=== PATIENT | male | born 1955 | race Caucasian/White ===

== ENCOUNTER 2018-11-07 06:55 | Observation (INO) | payer BC ==
[2018-11-07] MEDS: Nitroglycerin 0.4 MG Tab.SL SL PRN ×3 (07:00→07:50)
[2018-11-07] MEDS ORDERED: Aspirin 81 MG Tab.Chew PO ONE (07:29)
[2018-11-07] MEDS ORDERED: Sodium Chloride 0.9% 1,000 ML IV SCH (07:30)
[2018-11-07] MEDS ORDERED: GI Cocktail Oral Solution 30 ML PO ONE (07:49)
--- NOTE | 2018-11-07 08:12 | EDM.PDOC ---
ED HPI GENERAL MEDICAL PROBLEM - General Chief Complaint: Cardiovascular Problem Stated Complaint: NOT FEEL WELL Time Seen by Provider: 11/07/18 07:25 Source of Information: Reports: Patient History Limitations: Reports: No Limitations - History of Present Illness INITIAL COMMENTS - FREE TEXT/NARRATIVE: This is a 63yo M here for chest pressure since last night 1am. He states he woke up with the pressure and it has not gone away. He does take a baby aspirin daily. He had a high BP when he woke up. He denies any other issues or concerns. He does take Tums frequently and per he takes them usually 1 hour after meals. Patient denies recent fever or illness. The pressure of the epigastric area and chest is about 6/10 with some improvement when nitro was given. It is constant and unremitting. Onset: Sudden Duration: Hour(s):, Constant Sternum Pain Score (Numeric/FACES): 6 - Related Data Allergies Allergy/AdvReac Type Severity Reaction Status Date / Time No Known Allergies Allergy Verified 11/07/18 08:02 Home Meds: Home Meds Aspirin 81 mg PO DAILY 09/17/16 [History] Fish Oil/[place]grath-3 Fatty Acids [Fish Oil] 1 each PO BID 09/17/16 [History] Multivitamin [Multivitamins] 1 each PO DAILY 09/17/16 [History] Losartan [Cozaar] 25 mg PO DAILY 11/07/18 [History] Past Medical History - Past Health History Medical/Surgical History: Denies Medical/Surgical History Social & Family History - Family History Family Medical History: Noncontributory - Caffeine Use Caffeine Use: Reports: Coffee Caffeine Use Comment: 3 cups a day ED ROS GENERAL - Review of Systems Review Of Systems: ROS reveals no pertinent complaints other than HPI. ED EXAM, GENERAL - Physical Exam Exam: See Below Course - Vital Signs Last Recorded V/S: Last Vital Signs Temp 37.0 C 11/07/18 06:55 Pulse 64 11/07/18 14:28 Resp 20 11/07/18 08:07 BP 138/79 11/07/18 14:28 Pulse Ox 95 11/07/18 13:00 - Orders/Labs/Meds Orders: Active Orders 24 hr Category Date Time Status Cardiac Monitoring [RC] .As Directed Care 11/07/18 07:28 Active EKG Documentation Completion [RC] ASDIRECTED Care 11/07/18 07:26 Active Labs: Laboratory Tests 11/07/18 11/07/18 11/07/18 Range/Units 07:00 07:00 07:00 WBC 4.2 D (4.0-11.0) K/uL RBC 4.75 (4.50-6.50) M/uL Hgb 14.9 (13.0-18.0) g/dL Hct 43.1 (40.0-54.0) % MCV 91 (76-96) fL MCH 31.4 (27.0-32.0) pg MCHC 34.6 (31.0-35.0) g/dL RDW 12.9 (11.0-16.0) % Plt Count 210 (150-400) K/uL MPV 10.6 H (6.0-10.0) fL Neut % (Auto) 47.0 (45.0-70.0) % Lymph % (Auto) 36.0 (20.0-40.0) % [place] % (Auto) 11.1 H (3.0-10.0) % Eos % (Auto) 5.0 (1.0-5.0) % Baso % (Auto) 0.9 H (0.0-0.5) % Neut # (Auto) 1.98 L (2.00-7.50) K/uL Lymph # (Auto) 1.52 (1.50-4.00) K/uL [place] # (Auto) 0.47 (0.20-0.80) K/uL Eos # (Auto) 0.21 (0.04-0.40) K/uL Baso # (Auto) 0.04 (0.02-0.10) K/uL Sodium 142 (136-145) mmol/L Potassium 4.1 (3.5-5.1) mmol/L Chloride 105 (98-107) mmol/L Carbon Dioxide 25.9 (21.0-32.0) mmol/L Anion Gap 15.2 H (5.0-15.0) mmol/L BUN 15 (8-26) mg/dL Creatinine 1.19 (0.70-1.30) mg/dL Est Cr Clr Drug Dosing TNP Estimated GFR (MDRD) > 60 (>60) MLS/MIN BUN/Creatinine Ratio 12.6 (6-25) Glucose 128 H (74-100) mg/dL Calcium 9.8 (8.5-10.1) mg/dL Troponin I < 0.017 (0.000-0.060) ng/mL B-Natriuretic Peptide 16 (0-125) pg/mL Meds: Medications Discontinued Medications Generic Name Dose Route Start Last Admin Trade Name Freq PRN Reason Stop Dose Admin Al Hydroxide/Mg Hydroxide 30 ml 11/07/18 07:49 11/07/18 07:53 Gi Cocktail PO 11/07/18 07:50 30 ml ONETIME ONE Administration Aspirin 324 mg 11/07/18 07:29 11/07/18 07:00 Aspirin PO 11/07/18 07:30 324 mg ONETIME ONE Administration Sodium Chloride 1,000 mls @ 250 mls/hr 11/07/18 07:30 Normal Saline IV ASDIRECTED [facility] Ketorolac Tromethamine Confirm 11/07/18 08:49 11/07/18 08:58 Toradol Administered 11/07/18 08:50 Not Given Dose 30 mg .ROUTE .STK-MED ONE Ketorolac Tromethamine 30 mg 11/07/18 08:55 11/07/18 08:59 Toradol IVPUSH 11/07/18 08:56 30 mg ONETIME ONE Administration Nitroglycerin 0.4 mg 11/07/18 07:28 11/07/18 07:50 Nitrostat SL 0.4 mg Q5M PRN Administration Chest Pain Pantoprazole Sodium 40 mg 11/07/18 14:29 11/07/18 14:46 Protonix Iv IVPUSH 11/07/18 14:30 40 mg ONETIME ONE Administration Pantoprazole Sodium Confirm 11/07/18 14:42 11/07/18 14:55 Protonix Iv Administered 11/07/18 14:43 Not Given Dose 40 mg .ROUTE .STK-MED ONE Departure - Departure Time of Disposition: 08:00 Disposition: Refer to Observation Condition: Good Clinical Impression: Chest tightness or pressure, Epigastric heaviness - Problem List & Annotations (1) Chest tightness or pressure SNOMED Code(s): 76294435 Code(s): R07.89 - OTHER CHEST PAIN Status: Acute Priority: High (2) Epigastric heaviness SNOMED Code(s): 9084872 Code(s): R19.8 - OTH SYMPTOMS AND SIGNS INVOLVING THE DGSTV SYS AND ABDOMEN Status: Acute Priority: High - Problem List Review Problem List Initiated/Reviewed/Updated: Yes - My Orders Last 24 Hours: My Active Orders 11/07/18 07:26 EKG Documentation Completion [RC] ASDIRECTED 11/07/18 07:28 Cardiac Monitoring [RC] .As Directed - Assessment/Plan Last 24 Hours: My Active Orders 11/07/18 07:26 EKG Documentation Completion [RC] ASDIRECTED 11/07/18 07:28 Cardiac Monitoring [RC] .As Directed Plan: Patient placed in observation under telemetry for chest pressure and r/o ACS. Serial troponins ordered.
[2018-11-07] MEDS ORDERED: Ketorolac 30 MG/ML SDV ONE (08:49)
[2018-11-07] MEDS ORDERED: Ketorolac 30 MG/ML SDV IVPUSH ONE (08:55)
--- NOTE | 2018-11-07 09:39 | CR ---
DATE OF SERVICE: 11/07/18 CLINICAL DATA: Chest pain. FRONTAL VIEW OF THE CHEST: No priors. The heart size is normal. The lungs are clear. No pneumothorax. No pleural effusions. No evidence of acute intrathoracic disease. [id number] MTDD
[2018-11-07 14:28] VITALS: BP 138/79
[2018-11-07] MEDS ORDERED: Pantoprazole 40 MG Vial IVPUSH ONE (14:29)
[2018-11-07] MEDS ORDERED: Pantoprazole 40 MG Vial ONE (14:42)
--- NOTE | 2018-11-07 15:08 | CT ---
DATE OF SERVICE: 11/07/2018 CLINICAL DATA: CHEST PAIN No unenhanced chest CT: Multislice acquisition through the chest without IV contrast was performed. No priors. There are a couple of linear densities left lung base consistent with linear atelectasis or fibrosis. The lungs are otherwise clear. No areas of consolidation. No pneumothorax. No pleural effusions. The heart size is normal. There is a coronary artery calcification. No significant pericardial effusion. There are atherosclerotic changes of the thoracic aorta. No aortic aneurysm. No hilar or mediastinal adenopathy. There is a small hiatal hernia. There is gas within the thoracic esophagus most likely related to GE reflux. There is mild degenerative disc disease at multiple levels in the thoracic spine. Otherwise negative. MTDD
--- NOTE | 2018-11-07 15:14 | CT ---
DATE OF SERVICE: 11/07/2018 CLINICAL DATA: Epigastric pain Unenhanced abdomen CT: Multislice acquisition through the abdomen without IV or oral contrast was performed. No priors. The unenhanced liver appears normal. No focal hepatic lesions. The gallbladder appears normal. No calcified gallstones. There is a small hiatal hernia. The spleen appears normal. The pancreas appears normal. The right and left adrenals appear normal. The right and left kidneys appear normal. No nephrocalcinosis or nephrolithiasis. No hydronephrosis or hydroureter. The appendix is not dilated. No evidence of appendicitis. No free air. No free fluid. No dilated loops of bowel. No adenopathy. No aortic aneurysm. MTDD
--- NOTE | 2018-11-07 17:36 | PCM.DCSUM1 ---
Discharge Summary - Discharge Data Discharge Date: 11/07/18 Discharge Disposition: Home, Self-Care 01 Condition: Good - Discharge Diagnosis/Problem(s) (1) Chest tightness or pressure SNOMED Code(s): 42545716 ICD Code: R07.89 - OTHER CHEST PAIN Status: Acute Priority: High (2) Epigastric heaviness SNOMED Code(s): 2266804 ICD Code: R19.8 - OTH SYMPTOMS AND SIGNS INVOLVING THE DGSTV SYS AND ABDOMEN Status: Acute Priority: High - Patient Instructions Diet: Usual Diet as Tolerated Activity: As Tolerated - Discharge Plan Home Medications: Home Meds Aspirin 81 mg PO DAILY 09/17/16 [History] Fish Oil/[place]-3 Fatty Acids [Fish Oil] 1 each PO BID 09/17/16 [History] Multivitamin [Multivitamins] 1 each PO DAILY 09/17/16 [History] Losartan [Cozaar] 25 mg PO DAILY 11/07/18 [History] Patient Handouts: Omeprazole; Sodium Bicarbonate oral capsule, Ketorolac injection, Food Choices for Gastroesophageal Reflux Disease, Adult, Pantoprazole injection, Chest Wall Pain, [id number], Nonspecific Chest Pain, [id number], Gastroesophageal Reflux Disease, Adult, [id number] Forms: ED Department Discharge Referrals: PCP,None [Primary Care Provider] - - Discharge Summary/Plan Comment DC Time >30 min.: Yes Discharge Summary/Plan Comment: Patient improved slightly with two other doses of nitro. Epigastric and chest pain persisted so CT chest and abdomen done showing a small hiatal hernia and likely GERD. Patient counseled on stress test due to coronary calcifications on CT and symptoms. Discussed trial of omeprazole treatment 40mg daily for 2-3 months as directed. Discussed close monitoring and f/u of symptoms in ER or clinic. Patient to be setup for EGD due to CT findings and symptoms. F/u as directed and as needed. - Patient Data Vitals - Most Recent: Last Vital Signs Temp 37.0 C 11/07/18 06:55 Pulse 64 11/07/18 14:28 Resp 20 11/07/18 08:07 BP 138/79 11/07/18 14:28 Pulse Ox 95 11/07/18 13:00 Weight - Most Recent: 99.79 kg Lab Results - Last 24 hrs: Laboratory Results - last 24 hr 11/07/18 11/07/18 11/07/18 Range/Units 07:00 07:00 07:00 WBC 4.2 D (4.0-11.0) K/uL RBC 4.75 (4.50-6.50) M/uL Hgb 14.9 (13.0-18.0) g/dL Hct 43.1 (40.0-54.0) % MCV 91 (76-96) fL MCH 31.4 (27.0-32.0) pg MCHC 34.6 (31.0-35.0) g/dL RDW 12.9 (11.0-16.0) % Plt Count 210 (150-400) K/uL MPV 10.6 H (6.0-10.0) fL Neut % (Auto) 47.0 (45.0-70.0) % Lymph % (Auto) 36.0 (20.0-40.0) % [place] % (Auto) 11.1 H (3.0-10.0) % Eos % (Auto) 5.0 (1.0-5.0) % Baso % (Auto) 0.9 H (0.0-0.5) % Neut # (Auto) 1.98 L (2.00-7.50) K/uL Lymph # (Auto) 1.52 (1.50-4.00) K/uL [place] # (Auto) 0.47 (0.20-0.80) K/uL Eos # (Auto) 0.21 (0.04-0.40) K/uL Baso # (Auto) 0.04 (0.02-0.10) K/uL Sodium 142 (136-145) mmol/L Potassium 4.1 (3.5-5.1) mmol/L Chloride 105 (98-107) mmol/L Carbon Dioxide 25.9 (21.0-32.0) mmol/L Anion Gap 15.2 H (5.0-15.0) mmol/L BUN 15 (8-26) mg/dL Creatinine 1.19 (0.70-1.30) mg/dL Est Cr Clr Drug Dosing TNP Estimated GFR (MDRD) > 60 (>60) MLS/MIN BUN/Creatinine Ratio 12.6 (6-25) Glucose 128 H (74-100) mg/dL Calcium 9.8 (8.5-10.1) mg/dL Total Bilirubin (0.0-1.0) mg/dL AST (15-37) U/L ALT (12-78) U/L Troponin I < 0.017 (0.000-0.060) ng/mL B-Natriuretic Peptide 16 (0-125) pg/mL Lipase (73-393) U/L 11/07/18 11/07/18 11/07/18 Range/Units 10:00 13:00 13:00 WBC (4.0-11.0) K/uL RBC (4.50-6.50) M/uL Hgb (13.0-18.0) g/dL Hct (40.0-54.0) % MCV (76-96) fL MCH (27.0-32.0) pg MCHC (31.0-35.0) g/dL RDW (11.0-16.0) % Plt Count (150-400) K/uL MPV (6.0-10.0) fL Neut % (Auto) (45.0-70.0) % Lymph % (Auto) (20.0-40.0) % [place] % (Auto) (3.0-10.0) % Eos % (Auto) (1.0-5.0) % Baso % (Auto) (0.0-0.5) % Neut # (Auto) (2.00-7.50) K/uL Lymph # (Auto) (1.50-4.00) K/uL [place] # (Auto) (0.20-0.80) K/uL Eos # (Auto) (0.04-0.40) K/uL Baso # (Auto) (0.02-0.10) K/uL Sodium (136-145) mmol/L Potassium (3.5-5.1) mmol/L Chloride (98-107) mmol/L Carbon Dioxide (21.0-32.0) mmol/L Anion Gap (5.0-15.0) mmol/L BUN (8-26) mg/dL Creatinine (0.70-1.30) mg/dL Est Cr Clr Drug Dosing Estimated GFR (MDRD) (>60) MLS/MIN BUN/Creatinine Ratio (6-25) Glucose (74-100) mg/dL Calcium (8.5-10.1) mg/dL Total Bilirubin 0.7 (0.0-1.0) mg/dL AST 27 (15-37) U/L ALT 35 (12-78) U/L Troponin I < 0.017 < 0.017 (0.000-0.060) ng/mL B-Natriuretic Peptide (0-125) pg/mL Lipase 179 (73-393) U/L Med Orders - Current: Current Medications Discontinued Medications Al Hydroxide/Mg Hydroxide (Gi Cocktail) 30 ml PO ONETIME ONE Stop: 11/07/18 07:50 Last Admin: 11/07/18 07:53 Dose: 30 ml Aspirin (Aspirin) 324 mg PO ONETIME ONE Stop: 11/07/18 07:30 Last Admin: 11/07/18 07:00 Dose: 324 mg Sodium Chloride (Normal Saline) 1,000 mls @ 250 mls/hr IV ASDIRECTED [facility] Ketorolac Tromethamine (Toradol) Confirm Administered Dose 30 mg .ROUTE .STK- MED ONE Stop: 11/07/18 08:50 Last Admin: 11/07/18 08:58 Dose: Not Given Ketorolac Tromethamine (Toradol) 30 mg IVPUSH ONETIME ONE Stop: 11/07/18 08:56 Last Admin: 11/07/18 08:59 Dose: 30 mg Nitroglycerin (Nitrostat) 0.4 mg SL Q5M PRN PRN Reason: Chest Pain Last Admin: 11/07/18 07:50 Dose: 0.4 mg Pantoprazole Sodium (Protonix Iv) 40 mg IVPUSH ONETIME ONE Stop: 11/07/18 14:30 Last Admin: 11/07/18 14:46 Dose: 40 mg Pantoprazole Sodium (Protonix Iv) Confirm Administered Dose 40 mg .ROUTE .STK -MED ONE Stop: 11/07/18 14:43 Last Admin: 11/07/18 14:55 Dose: Not Given
== END 2018-11-07 15:32 | disposition home or self-care (01) ==
LOC: LB.ED 06:55 → LB.MS 08:07
PROVIDERS: ADMIT Family Medicine; ATTEND Family Medicine
DX: R07.89 Other chest pain (principal); R19.8 Other specified symptoms and signs involving the digestive system and abdomen; K44.9 Diaphragmatic hernia without obstruction or gangrene; K21.9 Gastro-esophageal reflux disease without esophagitis; Z79.899 Other long term (current) drug therapy
CPT/HCPCS: 36415; 71045; 71250; 74150; 80048; 82247; 83690; 83880; 84450; 84460; 84484; 85025; 93005; 96360; 96361; 96374; 96375; 99285-25; A9270-GY; C9113; G0378; J1885; J7030

== ENCOUNTER 2025-02-06 19:34 | Emergency (ER) | payer MEDICARE ==
[2025-02-06] MEDS: Aspirin 81 MG Tab.Chew PO ONE (19:44)
[2025-02-06] MEDS ORDERED: Sodium Chloride 0.9% 10 ML Syringe FLUSH PRN (20:04)
[2025-02-06 20:20] LABS: HEMOGLOBIN 13.8 g/dL (13.0-18.0); MEAN CORPUSCULAR HEMOGLOBIN 31.2 pg (27.0-32.0); MEAN CORPUSCULAR HGB CONC 33.7 g/dL (31.0-35.0); MEAN PLATELET VOLUME 10.8 fL (6.0-10.0); RED BLOOD CELL COUNT 4.42 M/uL (4.50-6.50); RED CELL DISTRIBUTION WIDTH 12.7 % (11.0-16.0); WHITE BLOOD CELL COUNT,WBC 6.5 K/uL (4.0-11.0)
[2025-02-06 20:26] LABS: ANION GAP 14.3 mmol/L (5.0-15.0); CALCIUM 9.4 mg/dL (8.5-10.1); CARBON DIOXIDE,CO2 29.2 mmol/L (21.0-32.0); CREATININE 1.2 mg/dL (0.70-1.30); EST CRCL DRUG DOSING (CG) 50.32 mL/min; POTASSIUM,K 3.5 mmol/L (3.5-5.1)
[2025-02-06 20:34] LABS: MAGNESIUM 2.1 mg/dL (1.8-2.4); PHOSPHORUS 3.4 mg/dL (2.5-4.9); TROPONIN I HIGH SENSITIVITY < 4.0 pg/ml (<=60.4)
[2025-02-06 21:36] VITALS: BP 157/86; PULSE 62
== END 2025-02-06 21:12 | disposition home or self-care (01) ==
LOC: LB.ED 19:34
DX: I49.3 Ventricular premature depolarization (principal); R00.2 Palpitations; Z79.82 Long term (current) use of aspirin; Z79.899 Other long term (current) drug therapy
CPT/HCPCS: 36415; 80048; 83735; 84100; 84484; 85027; 85379; 93005; 99285; A9270; 93010; 99284